=== PATIENT | male | born 1940 | race African-American/Black ===

== ENCOUNTER 2019-06-26 12:53 | Inpatient (IN) ==
[2019-06-26 13:29] LABS: BASO# 0.01 X1000 (0.0-0.2); BASO% 0.1 % (0.0-0.8); EOS# 0.02 X1000 (0.0-0.7); EOS% 0.2 % (0.0-10.0); HEMATOCRIT 30.4 % (42.0-52.0); HEMOGLOBIN 9.2 g/dL (14.0-18.0); IMM GRAN# 0.03 X1000 (0.0-0.04); IMM GRAN% 0.3 % (0.0-0.5); LYMPH# 2.94 X1000 (1.2-3.4); LYMPH% 33.5 % (20.5-51.1); MCH 29.6 PG (27-31); MCHC 30.3 g/dL (33-37); MCV 97.7 FL (81-99); MONO# 1.54 X1000 (0.11-0.59); MONO% 17.6 % (1.7-9.3); MPV 9.7 FL (7.4-10.4); NEUT# 4.23 X1000 (1.4-6.5); NEUT% 48.3 % (42.2-75.2); PLT 170 X1000 (130-400); RBC 3.11 XMIL (4.7-6.1); WBC 8.77 X1000 (4.8-10.8)
[2019-06-26 13:45] LABS: URINE SOURCE CLEAN CATCH
[2019-06-26 13:53] LABS: BILIRUBIN URINE NEGATIVE (NEGATIVE); BLOOD URINE NEGATIVE (NEGATIVE); COLOR YELLOW; GLUCOSE URINE NEGATIVE (NEGATIVE); KETONE URINE NEGATIVE (NEGATIVE); LEUKOCYTES URINE NEGATIVE (NEGATIVE); NITRITE URINE NEGATIVE (NEGATIVE); PH URINE 6.5; PROTEIN URINE NEGATIVE (NEGATIVE); SP GRAVITY URINE 1.011; TURBIDITY URINE CLEAR (CLEAR); UROBILINOGEN URINE NORMAL (NORMAL)
[2019-06-26 13:55] LABS: UR EPITHELIAL CELLS <10 /HPF (<10); URINE BACTERIA NEGATIVE /HPF; URINE RBC <10 /HPF (<10); URINE WBC <10 /HPF (<10)
[2019-06-26 14:04] LABS: UR AMPHETAMINES QUAL NONE DETECTED (NONE DETECT); UR BARBITUATES QUAL NONE DETECTED (NONE DETECT); UR BENZODIAZEPIN QUAL NONE DETECTED (NONE DETECT); UR CANNABINOIDS QUAL NONE DETECTED (NONE DETECT); UR COCAINE QUAL NONE DETECTED (NONE DETECT); UR METHADONE QUAL NONE DETECTED (NONE DETECT); UR METHAMPHETAMINE QUAL NONE DETECTED (NONE DETECT); UR OPIATES QUAL NONE DETECTED (NONE DETECT); UR OXYCODONE QUAL NONE DETECTED (NONE DETECT); UR PCP QUAL NONE DETECTED (NONE DETECT); UR PROPOXYPHENE QUAL NONE DETECTED (NONE DETECT); UR TCA QUAL NONE DETECTED (NONE DETECT)
[2019-06-26 14:16] LABS: ALBUMIN 3.5 g/dL (3.5-5.0); CALCIUM 9.1 mg/dL (8.8-10.2); CREATININE 1.5 mg/dL (0.7-1.2); POTASSIUM 4.4 mmol/L (3.5-5.1); TOTAL BILIRUBIN 0.3 mg/dL (0.20-1.00); TOTAL PROTEIN 7.2 g/dL (6.3-8.3)
[2019-06-26 14:35] LABS: FREE T4 0.87 ng/dL (0.93-1.70)
[2019-06-26 14:39] LABS: TSH 62.92 uIUmL (0.27-4.20)
--- NOTE | 2019-06-26 17:23 | EKG Report ---
Test Performed on : 06/26/2019 5:10:21 PM Test Reason : psych Blood Pressure : / mmHG Vent. Rate : 081 BPM Atrial Rate : 081 BPM P-R Int : 136 ms QRS Dur : 072 ms QT Int : 380 ms P-R-T Axes : 023 037 049 degrees QTc Int : 441 ms Normal sinus rhythm. Normal ECG No previous ECGs available Unconfirmed Result
--- NOTE | 2019-06-26 18:28 | Diag Imaging Result Doc PS360 ---
EXAM: CT HEAD W/O CONTRAST INDICATION: AMS TECHNIQUE: This exam was performed using automated exposure control, adjustment of mA or kV according to patient size, and/or use of iterative reconstruction technique. COMPARISON: None. FINDINGS: Note that there is mild motion artifact on a few slices in the most inferior portion of the right temporal lobe and the right cerebellar hemisphere out of the [id number] due to the patient position. There is moderate diffuse brain atrophy. There is focal encephalomalacia involving the posterior left parietal lobe near the cranial vault and possibly the right parietal lobe. There is no definite acute infarct given the limited sensitivity of CT versus MRI. There is no discrete intracranial mass, mass effect, or intracranial hemorrhage. The surrounding soft tissues and bony structures are essentially unremarkable. IMPRESSION: 1.Somewhat limited study due to motion and positioning as described. 2.Chronic appearing changes as detailed above. No definite acute intracranial pathology. Electronically signed by Mateo Molina 06/26/2019 6:26 PM
--- NOTE | 2019-06-26 18:42 | PROVIDER DOCUMENTATION ---
This chart was entered by Jael Moran Scribe, acting as scribe for Sally Jean PA. HPI-Psychological Disorder - General Stated Complaint: SI Time Seen by Provider: 06/26/19 12:58 Source: patient, EMS ([facility]), other (assisted living staff) Allergies/Adverse Reactions: Patient Allergies Allergy/AdvReac Type Severity Reaction Status Date / Time lithium Allergy Unknown Unknown Unverified 06/26/19 13:25 - History of Present Illness-Psych Nature of Presenting Problem: Pt is a 78 yobm brought into the ED by [facility] from [facility] with c/o of violent aggressive behavior and violent outbursts. Pt says that "there are black people messing with my shower by turning it on and trying to flood my downstairs neighbors. They are trying to evict me". Pt states that he has lived at the facility since October of 2015 and before that lived with his . Pt says he does not know where his is now. Pt states that he sees Dr. Calle and that they say his is bi-polar but that he really is not. [facility] staff state that pt takes bi-polar medication and has turned on his shower and flooded his apartment, acted out at staff, been aggressive and violent toward staff. Pt says he was at [facility] 2 weeks ago and his family, who live in [place], state that if he needs to be admitted they would like him to go back to [facility]. Pt is joking, laughing, alert and nontoxic in appearance. Onset/Duration: reports: gradual, other (EMS was told pt has been acting out for a couple of weeks) Timing: reports: still present Severity: reports: mild Psychiatric Complaints: reports: angry, irritability, paranoid Patient arrived by:: EMS called by spouse/family (assisted living facility) Recently seen or treated by another doctor?: Yes (pt reports he was in [facility] 2 weeks ago) - Suicidal Ideation Suicide Risk Assessment: age >65, bi-polar, frightened friends-family Review of Systems - Adult - REVIEW OF SYSTEMS - ADULT Constitutional: denies: chills, fever Eyes: reports: no symptoms reported Ears, Nose, Mouth & Throat: reports: no symptoms reported Cardiovascular: denies: chest pain, syncope Respiratory: denies: cough, shortness of breath Gastrointestinal: reports: no symptoms reported Genitourinary: reports: no symptoms reported Musculoskeletal: reports: no symptoms reported Integumentary: reports: no symptoms reported Neurological: reports: no symptoms reported Psychiatric: reports: see HPI, other (paranoid) Endocrine: reports: no symptoms reported Hematologic/Lymphatic: reports: no symptoms reported Allergic/Immunologic: reports: no symptoms reported All Other Systems: Reviewed and Negative Past History - Adult - PAST MEDICAL HISTORY-ADULT Review of Records: reports: Old Records Reviewed, Nursing Assessment Review, Medications Reviewed, Social history reviewed & non-contributory. Major Childhood Illnesses: reports: denies history Cardiovascular: reports: denies history Respiratory: reports: denies history Gastrointestinal: reports: denies history Genitourinary: reports: denies history Musculoskeletal: reports: denies history Neurological: reports: denies history Endocrine/Immune: reports: denies history Other Conditions: reports: denies history - IMMUNIZATION STATUS Childhood Immunizations: See Nurse Assessment Flu Vaccine: See Nurse Assessment - FAMILY HISTORY Family History: reviewed, not pertinent - SOCIAL HISTORY Smoking: denies Substance Use: denies Living Situation: care facility ([facility]) Physical Exam-Psych Focus - Physical Exam-Psych Initial Vital Signs Reviewed: Yes Appearance: appropriate appearance, appropriate insight, neat, no apparent distress, impaired recent memory (wearing HH ID arm band but unsure when or where he got it). negative: slow to respond Neurological: alert, normal mood/affect, calm, oriented x 3. negative: anxious, depressed affect, flat Behavior/Eye Contact/Speech: cooperative, good eye contact, normal speech Thoughts/Hallucinations: no apparent hallucination, paranoid (reports that workers at the [facility] where he lives are "sabotaging him" and "framing him" when asked about flooding his room with water from the shower) HENMT: normocephalic/atraumatic, moist mucous membranes Neck: non-tender, full range of motion, supple Respiratory: lungs clear, normal breath sounds Cardiovascular: regular rate, rhythm Back Exam: kyphosis (cervicothoracic) Extremity: normal gait, normal inspection Integumentary: normal color, normal turgor, warm/dry Progress - PLAN OF CARE/RESULTS Progress/Plan/Lab Results: Vital Signs - 8 hr 06/26/19 13:09 Temperature 98.1 F Pulse Rate 87 Respiratory Rate 18 Blood Pressure 157/78 O2 Sat by Pulse Oximetry 98 Laboratory Results - last 24 hr 06/26/19 06/26/19 06/26/19 13:17 13:17 13:17 WBC 8.77 RBC 3.11 L Hgb 9.2 L Hct 30.4 L MCV 97.7 MCH 29.6 MCHC 30.3 L RDW Std Deviation 15.0 H Plt Count 170 MPV 9.7 Immature Gran % (Auto) 0.3 Neut % (Auto) 48.3 Lymph % (Auto) 33.5 Randall % (Auto) 17.6 H Eos % (Auto) 0.2 Baso % (Auto) 0.1 Immature Gran # (Auto) 0.03 Neut # (Auto) 4.23 Lymph # (Auto) 2.94 Randall # (Auto) 1.54 H Eos # (Auto) 0.02 Baso # (Auto) 0.01 Sodium 139 Potassium 4.4 Chloride 101 Carbon Dioxide 24 L Anion Gap 14 BUN 23 H Creatinine 1.5 H Estimated GFR/1.73 m2 46 BUN/Creatinine Ratio 15 Glucose 105 H Calculated Osmolality 282 Calcium 9.1 Total Bilirubin 0.30 AST 18 ALT 7 L Alkaline Phosphatase 42 Total Protein 7.2 Albumin 3.5 Globulin 4.0 Albumin/Globulin Ratio 1.0 Vitamin B12 831 TSH 62.92 H Free T4 0.87 L Urine Source Urine Color Urine Turbidity Urine pH Ur Specific Trinity Urine Protein Ur Glucose (Stick) Ur Ketones (Stick) Urine Blood Urine Nitrite Urine Bilirubin Urobilinogen Dipstick Urine Leukocytes Urine WBC (Auto) Urine RBC (Auto) U Epithel Cells (Auto) Urine Bacteria (Auto) Urine Opiates Screen Ur Oxycodone Screen Urine Methadone Screen U Propoxyphene Qual Ur Barbituates Screen Ur Tricyclics Screen Ur Phencyclidine Scrn Ur Amphetamines Screen U Methamphetamines Scrn U Benzodiazepines Scrn Urine Cocaine Screen U Cannabinoids Screen Plasma/Serum Ethyl Alc 06/26/19 06/26/19 06/26/19 13:17 13:20 13:20 WBC RBC Hgb Hct MCV MCH MCHC RDW Std Deviation Plt Count MPV Immature Gran % (Auto) Neut % (Auto) Lymph % (Auto) Randall % (Auto) Eos % (Auto) Baso % (Auto) Immature Gran # (Auto) Neut # (Auto) Lymph # (Auto) Randall # (Auto) Eos # (Auto) Baso # (Auto) Sodium Potassium Chloride Carbon Dioxide Anion Gap BUN Creatinine Estimated GFR/1.73 m2 BUN/Creatinine Ratio Glucose Calculated Osmolality Calcium Total Bilirubin AST ALT Alkaline Phosphatase Total Protein Albumin Globulin Albumin/Globulin Ratio Vitamin B12 TSH Free T4 Urine Source CLEAN CATCH Urine Color YELLOW Urine Turbidity CLEAR Urine pH 6.5 Ur Specific Trinity 1.011 Urine Protein NEGATIVE Ur Glucose (Stick) NEGATIVE Ur Ketones (Stick) NEGATIVE Urine Blood NEGATIVE Urine Nitrite NEGATIVE Urine Bilirubin NEGATIVE Urobilinogen Dipstick NORMAL Urine Leukocytes NEGATIVE Urine WBC (Auto) <10 Urine RBC (Auto) <10 U Epithel Cells (Auto) <10 Urine Bacteria (Auto) NEGATIVE Urine Opiates Screen NONE DETECTED Ur Oxycodone Screen NONE DETECTED Urine Methadone Screen NONE DETECTED U Propoxyphene Qual NONE DETECTED Ur Barbituates Screen NONE DETECTED Ur Tricyclics Screen NONE DETECTED Ur Phencyclidine Scrn NONE DETECTED Ur Amphetamines Screen NONE DETECTED U Methamphetamines Scrn NONE DETECTED U Benzodiazepines Scrn NONE DETECTED Urine Cocaine Screen NONE DETECTED U Cannabinoids Screen NONE DETECTED Plasma/Serum Ethyl Alc Orders Category Date Time Status CHEST-2 VIEWS [RAD] Stat Exams 06/26/19 17:[address] HEAD W/O CONTRAST [CT] Stat Exams 06/26/19 17:07 Completed ALCOHOL BLOOD Stat Lab 06/26/19 13:17 Completed CBC WITH ELECTRONIC DIFF [HEME] Stat Lab 06/26/19 13:17 Completed COMPREHENSIVE METABOLIC PANEL [CHEM] Stat Lab 06/26/19 13:17 Completed FREE T4 Stat Lab 06/26/19 13:17 Completed TSH Stat Lab 06/26/19 13:17 Completed URINALYSIS W/POSS RFLX CULT [URINALYSIS] Stat Lab 06/26/19 13:20 Completed URINE DRUG SCREEN PL Stat Lab 06/26/19 13:20 Completed VITAMIN B12 Stat Lab 06/26/19 13:17 Completed EKG [EKG] Stat Ther 06/26/19 17:05 Draft at 1435 pt was standing at attention in room "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 Continued to stand with blanket covering shoulders. Listening to Marco flowers on his phone. 1530 pt being screened by [facility]. Pt calm and cooperative. Result Diagrams: 06/26/19 13:17 06/26/19 13:17 - EKG 1 Time of EKG reading by physician:: 17:14 EKG Read and Signed by:: Rafael Mcelroy EKG Interpretation (*Must complete 3 of following elements*): Normal Rate: 81 Rhythm: NSR [place]: normal QRS: normal PA Interval: normal ST Wave: normal - XRAY 1 XRAY Study: Chest Impression: See EMR Report - CT/MRI 1 CT Study: Head Impression: See EMR Report ([facility] - [address], [address], [place] [address] [facility] - [address] , [place] [address] Department of Imaging Patient: LIBERTAD DEL CASTILLO Date: 06/26/19MR#: [id number] : 1940DM Status: REG ERAcct#: [id number] Age/Sex: 78/MRoom/Bed: Loc: P.ED Ordering Physician: Sally Jean Family Physician: None,PCP Reason for Procedure: AMS Signed EXAM: CT HEAD W/O CONTRAST INDICATION: AMS TECHNIQUE: This exam was performed using automated exposure control, adjustment of mA or kV according to patient size, and/or use of iterative reconstruction technique. COMPARISON: None. FINDINGS: Note that there is mild motion artifact on a few slices in the most inferior portion of the right temporal lobe and the right cerebellar hemisphere out of the [id number] due to the patient position. There is moderate diffuse brain atrophy. There is focal encephalomalacia involving the posterior left parietal lobe near the cranial vault and possibly the right parietal lobe. There is no definite acute infarct given the limited sensitivity of CT versus MRI. There is no discrete intracranial mass, mass effect, or intracranial hemorrhage. The surrounding soft tissues and bony structures are essentially unremarkable. IMPRESSION: 1.Somewhat limited study due to motion and po sitioning as described. 2.Chronic appearing changes as detailed above. No definite acute intracranial pathology. Electronically signed by Mateo Molina 06/26/2019 6:26 PM 06/26/191825 Interpreting Physician: Mateo Molina MD Dictated Date/Time: 06/26/191822 cc: Sally Jean; None,PCP) Departure - Departure Date of Disposition Decision: 06/26/19 Time of Disposition Decision: 18:41 DIAGNOSIS: Paranoia Disposition: PSYCHIATRIC HOSPITAL/[facility] [address] Certified Medical Emergency: Emergent Condition: Good Referrals and Follow-Ups: None,PCP [Primary Care Provider] - - Critical Care Note This patient required my direct & personal management of CC.: No Attestation - Physician/ THONY Attestation Patient care was provided by Advanced Practice Provider:: Yes Advanced Practice Provider:: Sally Jean Advanced Practice Provider documentation review:: The Mid-level provider documentation, treatment plan and medical decision making was reviewed by the physician who agrees with all treatment and medical decision making by the MLP. The physician spent face to face time with patient:: No Advanced Practice Provider documentation review:: Supervising physician onsite and consulted in the evaluation and care of this patient. The physician did not have a face to face encounter with the patient. This chart was documented by the indicated scribe, (Jael Moran, Durgaibangelique) and accurately reflects the services I performed and decisions made by me, Sally Jean PA, as attested by the provider's signature.
--- NOTE | 2019-06-26 18:42 | Diag Imaging Result Doc PS360 ---
EXAM: CHEST-2 VIEWS INDICATION: psych TECHNIQUE: 2 views COMPARISON: None. FINDINGS: There is a dense opacity in the right upper lobe near the apex with superior retraction of the right mainstem bronchus. This is suggestive of dense fibrosis with retraction. However, pneumonia cannot be excluded. There is also suggestion of central cavitation. There is no discrete pleural fluid collection or pneumothorax. The cardiomediastinal silhouette and central vasculature are grossly unremarkable. IMPRESSION: Dense right upper lobe opacity near the apex. Please see above discussion. Electronically signed by Mateo Molina 06/26/2019 6:39 PM
--- NOTE | 2019-06-26 20:07 | Diag Imaging Result Doc PS360 ---
EXAM: CT THORAX W/O CONTRAST INDICATION: questionable cxr RUL TECHNIQUE: This exam was performed using automated exposure control, adjustment of mA or kV according to patient size, and/or use of iterative reconstruction technique. COMPARISON: None. FINDINGS: There is severe bronchiectasis at the right lung apex corresponding to the density seen on the recent chest radiograph. There is much milder bronchiectasis at the left lung apex as well. There is thickening of the mucosa of the dilated bronchi with surrounding infiltrate. In addition to this, there is patchy nodular tree-in-bud opacities in the right middle lobe, right lower lobe, and the lingula indicating bronchiolitis, likely related to an atypical infection such as IRENE or tuberculosis. There is pleural thickening at the right lung apex adjacent to the severe bronchiectasis. There is no pleural fluid collection and no pneumothorax. There is no cardiomegaly. There are a few shotty nonspecific mediastinal lymph nodes on the right that are probably reactive. Limited views of the upper abdomen are essentially unremarkable. IMPRESSION: Severe bronchiectasis at the right lung apex and milder bronchiectasis at the left lung apex with thickened bronchial mucosa and surrounding infiltrate as well as multiple other nodular and tree-in-bud opacities throughout the right lung and in the lingula on the left. Consider an atypical infectious process such as IRENE or tuberculosis. Electronically signed by Mateo Molina 06/26/2019 8:05 PM
[2019-06-26] MEDS ORDERED: TYLENOL PO PRN (22:00)
[2019-06-26] MEDS ORDERED: XYLOCAINE-MPF 1% INJ ONE (22:27)
[2019-06-26] MEDS ORDERED: ROCEPHIN IM ONE (22:27)
[2019-06-27] MEDS ORDERED: ZITHROMAX PO ONE (14:16)
[2019-06-27] MEDS ORDERED: ABILIFY PO ONE ×2 (14:21→16:15)
[2019-06-27] MEDS ORDERED: SYNTHROID PO ONE (14:22)
[2019-06-27] MEDS ORDERED: STERILE WATER INJ. INJ PRN (14:24)
[2019-06-27] MEDS ORDERED: GEODON IM PRN (14:24)
[2019-06-27] MEDS ORDERED: DUONEB (A & A) INH PRN (14:25)
--- NOTE | 2019-06-27 15:01 | HISTORY AND PHYSICAL ---
HISTORY OF PRESENT ILLNESS: This is a 78-year-old male. He came in for combative behaviors essentially. He is 78. No major medical problems except for hypertension. He has never been here before. I think he gets most of his care from [place]. He lives at [facility]. Apparently, he felt like he was being wrongfully accused of flooding downstairs apartment and he is still very belligerent and angry. Apparently, that is a big change from baseline. Violent, aggressive behaviors, violent outbursts. There are "black people messing with his shower and trying to flood the downstairs neighbors, they were trying to evict him". He has a psychiatric history which I believe is bipolar. He is allergic to lithium so I think he is. He sees Dr. Calle. He is supposed to be getting a medication which apparently he missed his dose. He was at [facility] 2 weeks ago for fever but that was negative. Now, he is very agitated and wants to go home. He does not understand why he has to be kept here. Now, he reports no cough, no shortness of breath, no weight loss. Again, he had some "issues before". His TB exposure is remote. He was in the in 1968. He was in the [place] but no exposure since then. He had a PPD last year sometime around September which is negative. Again, those can be false negatives in the elderly, but no hemoptysis, no weight loss, no cough, no night sweats, no lymphadenopathy. There are not a lot of risk factors for TB or MAC. He does not have any chronic lung disease. He reports that he does not smoke but his CT scan to me looks like he has got some bullous changes and he has bronchiectasis but does not clearly have COPD or a history of that. Reportedly, no COPD history. He was admitted for bronchiectasis, rule out tuberculosis. He also has active psychiatric issues but in any case, past medical history of hypertension. In any case, he came in for evaluation. He has non-Hodgkin's lymphoma. He had a history of that. That was in 2007. Treatment was in [place]. He had chemotherapy and radiation therapy. As far as we know, it has been cleared. Also gout, also dyslipidemia. PAST SURGICAL HISTORY: He has had bilateral hip replacements. SOCIAL HISTORY: No tobacco or ethanol. He is retired. He is ex-. He lived with his before he was at [facility]. No ethanol, no tobacco, no drugs. ALLERGIES: Blaine. Urine drug screen was negative. Rest of his labs really are unremarkable except he had a mild renal insufficiency. MEDICATIONS: He is currently on Lipitor 10, Abilify 300 I believe monthly which he missed his dose, Depakote 500 b.i.d. REVIEW OF SYSTEMS: Otherwise negative x10 point review of systems, especially no hemoptysis, cough, shortness of breath, any obvious clinical issues there. PHYSICAL EXAMINATION: VITAL SIGNS: Blood pressure is 154/65, heart rate of 71, respiratory rate of 18, temperature was 97.9 degrees. GENERAL: Well-developed male in mild distress. He is a little ornery, kind of upset, but I think some of that is because he is uncertain as to why he is here. There may be some underlying psychiatric issues too, especially if he missed his regular dose of medications which I am not entirely sure why that has happened. EYE EXAMINATION: Pupils equal, round, reactive to light. He does have arcus senilis. NECK: Kind of hyperflexion. He cannot really raise his neck and I think that is kind of a chronic issue for him. ENT: Moist mucous membranes. No lesions noted. CARDIOVASCULAR: Regular rate and rhythm. PULMONARY: Bilateral breath sounds clear to auscultation. I cannot really appreciate rales, rhonchi, or wheezing. GI: Soft, nontender, nondistended. Bowel sounds are positive. LABORATORY DATA: White count 8, hemoglobin and hematocrit 9 and 30, platelets 170,000. Creatinine 1.5, glucose 105. Rest of the testing is negative. CT was read as bronchiectasis with severe in the right lung apex and the left lung apex, and multiple nodular tree-in-bud opacities with concern over atypical infectious process such as IRENE or tuberculosis. ASSESSMENT: 1. This is a 78-year-old male presenting from an assisted living with bronchiectasis and possible tubercular changes, although more consistent with Mycobacterium avium-intracellulare, MAC or IRENE, although he does not have clear risk factors for that besides being elderly so we will rule out AFB x3. QuantiFERON has been ordered. I think it is unlikely this is tuberculosis. He does not really have risk factors or any really symptoms. 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 I have discussed the case with Dr. Obrien because a pulmonary consult is not available here so we will continue to follow. 2. Hypothyroidism. He has hypothyroidism as part of his psychiatric workup so we will start treating that with Synthroid. The patient is refusing anything intravenously which at this point, it is not essential to his care so we will continue to follow. 3. Bipolar disorder, which is not controlled. He will need psychiatric evaluation but we have to rule out the tuberculosis issue obviously first, which hopefully we can do with collective sputums. If those are negative, then I anticipate discharge soon. 4. Discharge condition is stable, well pending resolution of his other issues. cc: Frankie Panda MD
[2019-06-27] MEDS: DEPAKOTE PO SCH ×2 (15:05→20:28)
[2019-06-27 15:49] LABS: ALBUMIN 3.3 g/dL (3.5-5.0); CALCIUM 8.8 mg/dL (8.8-10.2); CREATININE 1.4 mg/dL (0.7-1.2); POTASSIUM 4.6 mmol/L (3.5-5.1); TOTAL BILIRUBIN 0.2 mg/dL (0.20-1.00); TOTAL PROTEIN 6.8 g/dL (6.3-8.3)
[2019-06-27] MEDS: LIPITOR PO SCH (20:28)
[2019-06-27] MEDS: VENTOLIN HFA INH PRN (20:32)
[2019-06-28] MEDS: SYNTHROID PO SCH (06:05)
[2019-06-28 06:07] LABS: BASO# 0.01 X1000 (0.0-0.2); BASO% 0.2 % (0.0-0.8); EOS# 0.04 X1000 (0.0-0.7); EOS% 0.6 % (0.0-10.0); HEMATOCRIT 27.9 % (42.0-52.0); HEMOGLOBIN 8.4 g/dL (14.0-18.0); IMM GRAN# 0.01 X1000 (0.0-0.04); IMM GRAN% 0.2 % (0.0-0.5); LYMPH# 2.48 X1000 (1.2-3.4); LYMPH% 39.7 % (20.5-51.1); MCH 29.7 PG (27-31); MCHC 30.1 g/dL (33-37); MCV 98.6 FL (81-99); MONO# 1.13 X1000 (0.11-0.59); MONO% 18.1 % (1.7-9.3); MPV 9.7 FL (7.4-10.4); NEUT# 2.57 X1000 (1.4-6.5); NEUT% 41.2 % (42.2-75.2); PLT 143 X1000 (130-400); RBC 2.83 XMIL (4.7-6.1); RDW 14.9 % (11.5-14.5); WBC 6.24 X1000 (4.8-10.8)
[2019-06-28] MEDS: VENTOLIN HFA INH PRN (08:12)
[2019-06-28] MEDS: ABILIFY PO SCH (09:03)
[2019-06-28] MEDS: DEPAKOTE PO SCH ×2 (09:03→20:01)
[2019-06-28] MEDS: ZITHROMAX PO SCH (09:03)
[2019-06-28] MEDS ORDERED: DUONEB (A & A) ONE (11:04)
[2019-06-28] MEDS ORDERED: MUCOMYST 20% INH ONE (11:04)
--- NOTE | 2019-06-28 12:21 | PROGRESS NOTE ---
DATE: 06/28/2019 SUBJECTIVE: Patient has no major complaints. OBJECTIVE: Vital signs: Blood pressure is 173/73, heart rate of 88, respiratory 18, temperature 98.6 degrees. General: He has no complaints. Again, he is not complaining of shortness of breath or cough or anything except being in the hospital. Cardiovascular: Regular rate and rhythm. Pulmonary: Bilateral breath sounds clear to auscultation. GI: Soft, nontender, nondistended. Bowel sounds are positive. LABORATORY DATA: White count 6, hemoglobin and hematocrit 8 and 27, platelets of 143,000. He does have hypothyroidism. PROBLEM LIST: 1. Bronchiectasis with concern over IRENE. We are still waiting on his QuantiFERON or sputum to be negative, and I think we can probably take him off precautions and pursue psychiatric evaluation. 2. Hypothyroidism, we will continue Synthroid. 3. Bipolar disorder, which does not appear to be completely controlled, although today I am going to say he is much improved, so we are going to monitor him. I think once we can get the QuantiFERON or the sputum, then anticipate discharge back to the facility. He will need close follow up with Pulmonary. I have discussed the case with Dr. Obrien, so we will see how things are going. cc: Frankie Panda MD
--- NOTE | 2019-06-28 15:05 | PROGRESS NOTE ---
DATE: 06/28/2019 SUBJECTIVE: Patient has no major complaints. OBJECTIVE: 173/73, heart rate of 88, respiratory rate 18, temperature 98.6 degrees, 98% on room air. Cardiovascular: Regular rate and rhythm. Pulmonary: Bilateral breath sounds. Clear to auscultation. GI: Soft, nontender, and nondistended. Bowel sounds are positive. LABORATORY: White count 6, hemoglobin and hematocrit 8 and 27, and platelets 143,000. PROBLEM LIST: 1. 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 I think it is unlikely, but I am still waiting on the QuantiFERON test before we can progress to any other treatment. We have not gotten a sputum until today. We had to induce it, but he is doing pretty well from that standpoint. He is not really symptomatic. 2. Hypothyroidism. Continue Synthroid. 3. Bipolar. He will need a psychiatric evaluation once we have taken him off precautions. On physical exam, BP cc: Frankie Panda MD
[2019-06-28] MEDS: DUONEB (A & A) INH SCH (19:33)
[2019-06-28] MEDS: MUCOMYST 20% INH SCH (19:34)
[2019-06-28] MEDS: LIPITOR PO SCH (20:01)
[2019-06-29] MEDS: DUONEB (A & A) INH SCH (02:31)
[2019-06-29 05:12] LABS: BASO# 0.01 X1000 (0.0-0.2); BASO% 0.2 % (0.0-0.8); EOS% 1.6 % (0.0-10.0); HEMATOCRIT 29.7 % (42.0-52.0); HEMOGLOBIN 8.9 g/dL (14.0-18.0); IMM GRAN# 0.01 X1000 (0.0-0.04); IMM GRAN% 0.2 % (0.0-0.5); LYMPH# 2.41 X1000 (1.2-3.4); LYMPH% 39.5 % (20.5-51.1); MCH 29.5 PG (27-31); MCV 98.3 FL (81-99); MONO# 1.19 X1000 (0.11-0.59); MONO% 19.5 % (1.7-9.3); MPV 9.5 FL (7.4-10.4); NEUT# 2.38 X1000 (1.4-6.5); PLT 152 X1000 (130-400); RBC 3.02 XMIL (4.7-6.1); RDW 14.9 % (11.5-14.5)
[2019-06-29 05:15] LABS: AGAP 13; BUN 18 mg/dL (8-22); CHLORIDE 102 mmol/L (98-107); COSMO 283; CREATININE 1.1 mg/dL (0.7-1.2); ESTIMATED GFR > 60; GLUCOSE 100 mg/dL (70-104); POTASSIUM 4.5 mmol/L (3.5-5.1); SODIUM 141 mmol/L (136-145); TCO2 26 mmol/L (25-35)
[2019-06-29 05:30] LABS: IRON SATURATION 28 %; TIBC 181 ug/dL; TOTAL IRON 51 ug/dL (53-167); UNBOUND IRON 130 ug/dL (112-346)
[2019-06-29] MEDS: SYNTHROID PO SCH (06:22)
[2019-06-29] MEDS: MUCOMYST 20% INH SCH (08:00)
[2019-06-29] MEDS: ABILIFY PO SCH (10:26)
[2019-06-29] MEDS: DEPAKOTE PO SCH ×2 (10:26→20:06)
[2019-06-29] MEDS: ZITHROMAX PO SCH ×2 (10:27→15:00)
[2019-06-29 14:04] LABS: FERRITIN 888 ng/mL (30-400)
[2019-06-29] MEDS ORDERED: EMSAM TD SCH (14:30)
[2019-06-29] MEDS ORDERED: ABILIFY MAINTENA IM ONE (15:00)
[2019-06-29] MEDS: FOLIC ACID PO SCH (15:16)
--- NOTE | 2019-06-29 15:50 | PROGRESS NOTE ---
DATE: 06/29/2019 SUBJECTIVE: The patient has no complaints. He does not believe he is sick. He does not have any tuberculosis. We are incorrect about our diagnosis, although I think after further discussion with his daughter, he agreed to treatment. In any case, no other complaints. Again no fevers, cough, anything. OBJECTIVE: Blood pressure 147/65, heart rate 68, respiratory rate 20, temperature 98.3 degrees. He is afebrile.Cardiovascular: Regular rate and rhythm. Pulmonary: Bilateral breath sounds clear to auscultation. GI: Soft, nontender, nondistended. Bowel sounds are positive. LABORATORY DATA: White count 6, hemoglobin and hematocrit 8 and 29, platelets 152,000. Basic was okay. Ferritin high at 888 but the rest of his iron studies were pretty good. Total iron was a little low but his saturation was only 28%. His folate is low. In any case. 1. His QuantiFERON is positive. We have not been able to successfully get a good enough sputum. I have discussed the case with Dr. Rayo who recommends he is suspicious that it is tuberculosis and maybe not Mycobacterium avium complex. He agrees to do a bronchoscopy so we are going to transfer him to the main hospital for that to be done in the next 24 hours or so. We will still try to get AFBs. He has agreed to go through the procedure. He is agreeing to take treatment for that. He is not agreeing to take any psychiatric treatment. He is just refusing it out right. He has missed his depot form of Abilify for last 2 months. He did take 1 dose of Abilify but he has not taken anything else and he refuses to take Depakote so we will get psychiatric evaluation at some point once he is off contact precautions. 2. Hypothyroidism. Continue Synthroid. 3. Bipolar. He will need to have this addressed once we stabilize. Again he is refusing all psychiatric treatment so we may have to have inpatient consult liaison psych evaluation. cc: Frankie Panda MD
[2019-06-29] MEDS ORDERED: GEODON IM PRN (17:09)
[2019-06-29] MEDS ORDERED: STERILE WATER INJ. INJ PRN (17:10)
[2019-06-29] MEDS ORDERED: TYLENOL PO PRN (17:12)
[2019-06-29] MEDS ORDERED: VENTOLIN HFA INH PRN (17:12)
[2019-06-29] MEDS: LIPITOR PO SCH ×2 (19:53→20:06)
[2019-06-30 06:11] LABS: BASO# 0.01 X1000 (0.0-0.2); BASO% 0.1 % (0.0-0.8); EOS% 1.2 % (0.0-10.0); HEMATOCRIT 31.7 % (42.0-52.0); HEMOGLOBIN 9.6 g/dL (14.0-18.0); IMM GRAN# 0.02 X1000 (0.0-0.04); IMM GRAN% 0.2 % (0.0-0.5); LYMPH# 3.43 X1000 (1.2-3.4); LYMPH% 42.6 % (20.5-51.1); MCH 29.2 PG (27-31); MCHC 30.3 g/dL (33-37); MCV 96.4 FL (81-99); MONO# 1.25 X1000 (0.11-0.59); MONO% 15.5 % (1.7-9.3); MPV 9.7 FL (7.4-10.4); NEUT# 3.24 X1000 (1.4-6.5); NEUT% 40.4 % (42.2-75.2); PLT 165 X1000 (130-400); RBC 3.29 XMIL (4.7-6.1); RDW 15.1 % (11.5-14.5); WBC 8.05 X1000 (4.8-10.8)
[2019-06-30] MEDS: SYNTHROID PO SCH (07:29)
[2019-06-30] MEDS: ABILIFY PO SCH (14:33)
[2019-06-30] MEDS: DEPAKOTE PO SCH ×2 (14:33→22:53)
[2019-06-30] MEDS: FOLIC ACID PO SCH (14:34)
--- NOTE | 2019-06-30 15:59 | PROGRESS NOTE ---
DATE: 06/30/2019 SUBJECTIVE: Patient has no complaints. OBJECTIVE: Blood pressure 148/59, heart rate 68, respiratory rate 18, temperature 98 degrees.Cardiovascular: Regular rate and rhythm. Pulmonary: Bilateral breath sounds clear to auscultation. GI: Soft, nontender, nondistended. Bowel sounds are positive. LABORATORY DATA: White count 8, hemoglobin and hematocrit 9 and 31, platelets 165,000. Basic was normal. PROBLEM LIST: 1. Rule out tuberculosis versus mycobacterium avium intracellulare infection and bronchiectasis. I have not started antitubercular medications. Will see what Dr. Rayo says. I did not place the consult until today, but anticipate we will do bronchoscopy tomorrow and then proceed with treatment subsequently. 2. Hypothyroidism. He will continue Synthroid. 3. Bipolar is not controlled. He is refusing all treatment. We will get a psych consult once we have ruled out active TB. cc: Frankie Panda MD
[2019-06-30] MEDS: LIPITOR PO SCH (22:54)
--- NOTE | 2019-07-01 00:19 | PULMONOLOGY CONSULTATION ---
DATE: 06/30/2019 HISTORY OF PRESENT ILLNESS: Mr. Aranda is a 78-year-old male without prior admission to this hospital, who was brought to the emergency room 06/26/2019 from his assisted living facility due to violent and aggressive behavior with paranoia. He reportedly sees a psychiatrist for bipolar disorder. The patient was in [facility] about 2 weeks ago by report with the diagnosis of fever. He reports he was "cleared from there." He was evaluated by [facility] and a chest x-ray was performed which revealed an abnormality in the right apex. CT scan of the thorax was performed which revealed severe right upper lobe/right apical bronchiectasis with milder bronchiectasis in the left upper lobe with multiple nodular tree-in-bud opacities. The patient is a difficult historian, but reports he has not been exposed to tuberculosis. He does report living in the [facility], and [place] and then [place], [place]. With the abnormal findings on CT scan, the patient underwent a QuantiFERON Gold TB test, which is positive. One sputum sample was collected on 06/28/2019, but was inadequate. PAST MEDICAL HISTORY: 1. Remote history of non-Hodgkin's lymphoma. 2. Hypertension. 3. Presumptive bipolar disorder. He clearly has a component of paranoia. 4. Dyslipidemia. 5. Gout. 6. Status post bilateral hip replacements. SOCIAL HISTORY: No tobacco or alcohol listed. He previously was in the . Currently lives at [place]. REVIEW OF SYSTEMS: Noncontributory. The patient reports he feels well, does not believe he should be in the hospital. PHYSICAL EXAMINATION: General: Reveals a thin black male resting comfortably in no distress. Vital Signs: Blood pressure 158/73, heart rate 84, respiratory rate 18, oxygen saturation 100% on room air. HEENT: Pupils are equal and reactive. Oropharynx appears clear. Neck: Supple. Chest: Reveals occasional rhonchi bilaterally. Cardiac: S1, S2. Abdomen: Soft. Extremities: Without edema. LABORATORIES: CT scan as per HPI. Sodium 142, potassium 4.6, chloride 104, bicarbonate 26, BUN 21, creatinine 1.4. TSH is 62, free T4 is 0.87, albumin 3.3. IMPRESSION: A 78-year-old with cavitary lung disease, mild malnutrition, elevated QuantiFERON Gold TB test without definite treatment for tuberculosis. Radiographically and serology are consistent with tuberculosis. Alternative diagnosis would be an atypical mycobacterium. At this juncture, I believe it is prudent to confirm the diagnosis because he may be noncompliant with treatment regimen. Unfortunately, patient denies being sick. He refused to look at his CT scan when I attempted to show him the cavities within his lungs. He reports that he was cleared at [facility] and would only be treated at that facility. I recommended that we proceed with a bronchoscopy so that cultures could be obtained. He called me a "white supremacist" and indicated he would not have the procedure. The patient may require a legal proceeding to require him to have the procedure. He currently is a danger to others if he were to go back to any facility due to the possibility of active tuberculosis which has not been treated. RECOMMENDATIONS: 1. Encourage patient to proceed with bronchoscopy which he is currently declining. 2. Attempt to collect additional sputum cultures. If 3 adequate samples could be obtained, then a bronchoscopy could be avoided. 3. Consider a legal proceeding to mandate this procedure. It is not clear to this practitioner. He may require a court-appointed guardian. cc: Kali Rayo MD
[2019-07-01] MEDS: SYNTHROID PO SCH (06:04)
[2019-07-01] MEDS ORDERED: EPINEPHRINE ONE (09:25)
[2019-07-01] MEDS ORDERED: XYLOCAINE 2% ONE (09:25)
[2019-07-01] MEDS ORDERED: XYLOCAINE 2% VISCOUS ONE (09:25)
[2019-07-01] MEDS ORDERED: SODIUM CHLORIDE 0.9% 20 ML ONE (09:26)
[2019-07-01] MEDS ORDERED: DIPRIVAN 1% ONE ×2 (10:08→10:30)
[2019-07-01] MEDS ORDERED: XYLOCAINE-MPF 2% ONE (10:16)
[2019-07-01] MEDS: FOLIC ACID PO SCH (11:59)
[2019-07-01] MEDS: ABILIFY PO SCH (11:59)
[2019-07-01] MEDS: DEPAKOTE PO SCH ×2 (11:59→21:32)
--- NOTE | 2019-07-01 16:00 | PROGRESS NOTE ---
DATE: 07/01/2019 SUBJECTIVE: The patient has no major complaints. OBJECTIVE: Vital Signs: Blood pressure is 153/68, heart rate 68, respiratory rate 18, temperature 98.8 degrees, 98% on room air. Cardiovascular: Regular rate and rhythm. Pulmonary: Bilateral breath sounds clear to auscultation. Gastrointestinal: Soft, nontender, nondistended. Bowel sounds are positive. LABORATORY DATA: White count is 8, hemoglobin and hematocrit 9 and 31, platelets 165,000. PROBLEM LIST: 1. Bronchiectasis with a concern over possible tuberculosis versus mycobacterium avium- intracellulare. He is not on treatment yet. We are going to go ahead and start isoniazid. He is not particularly symptomatic. He just has an abnormal CT scan essentially that was found screening him to go to inpatient psych, which is a major issue that still has not been dealt with and patient refuses to take any of his medications because he does not feel he has anything wrong with him, but he was sent from his assisted living because of encephalopathy. Well not so much that, just behavioral issues, and he is in denial that he has bipolar disorder, even though I think it has been a long-standing disorder and he sees Dr. Calle. In any case, we are waiting for the AFB. If that is negative, then he could be cleared and then he could progress with psychiatric evaluation, which he has already been seen by them and was accepted initially pending the workup for his pneumonia. 2. Hypothyroidism. We will continue Synthroid. 3. Bipolar. I am not really sure exactly what we are going to do. I am going to try to see if we can get an inpatient psychiatric evaluation to just maybe start some therapy, but I am not sure what else we are going to do and we may end up having to do some sort of court committal because we can. There is really no disposition until the psychiatric issue is resolved. Interestingly enough, his [facility] records do not show anything. He was brought in " for fever" but his family really brought him in because they wanted to get a psychiatric evaluation, because he has missed his intramuscular Abilify, a long-term 30 day treatment now for two months, he refused it here. We tried to give it here. He is refusing Abilify and he is refusing his Depakote and he has lost intravenous access. So, a very complicated situation, but he would he may end up becoming a court hold if they will take him pending the TB status, I guess. So we will see how things go. cc: Frankie Panda MD
--- NOTE | 2019-07-01 18:16 | OPERATIVE NOTE ---
PROCEDURE DATE: 07/01/2019 PROCEDURE PERFORMED: Bronchoscopy with bronchoalveolar lavage of the right upper lobe and the left upper lobe with a tracheal washing. CLINICAL INDICATIONS: A 78-year-old with biapical cavitary disease with tree-in-bud spreading along with a positive QuantiFERON gold serology test. PLAN: After informed consent was obtained, patient was brought to the endoscopy suite. The patient did not tolerate having sticks placed in his nose prior to the procedure without sedation. Sedation was initiated but was unsuccessful. The IV was not in good position. The patient did scream out multiple times while the DYNAMITER placed a new IV in the left hand. After the new catheter was placed, he easily became sedated with propofol. Procedure proceeded with bronchoscope be advanced through the right nostril to the level of the vocal cords. The bronchoscope was advanced into the trachea. There was mild increase in purulent secretions in the proximal trachea and bronchial tree. This was suctioned for a bronchial wash. Airway to the right upper lobe, right middle lobe, right lower lobe, left upper lobe lingula and left lower lobe were patent without lesions. The bronchoscope was directed to the right upper lobe. A bronchoalveolar lavage was performed with three 60 mL aliquots of normal saline. There was good return of cloudy slightly purulent serosanguineous fluid. Bronchoscope was directed to the left upper lobe. Bronchoalveolar lavage was performed from the apical posterior segment. Bloody fluid was identified. The patient tolerated procedure without difficulty. cc: aKli Rayo MD
[2019-07-01] MEDS: INH PO SCH (18:41)
[2019-07-01] MEDS: LIPITOR PO SCH (21:32)
[2019-07-02] MEDS: SYNTHROID PO SCH (06:59)
[2019-07-02] MEDS: DEPAKOTE PO SCH ×2 (08:36→22:16)
[2019-07-02] MEDS: FOLIC ACID PO SCH (08:36)
[2019-07-02] MEDS: ABILIFY PO SCH (08:36)
[2019-07-02] MEDS: INH PO SCH (08:36)
--- NOTE | 2019-07-02 18:42 | PULMONOLOGY PROGRESS NOTE ---
DATE: 07/02/2019 SUBJECTIVE: The patient is awake, alert, and cooperative. He is currently listening to Marco Chicas. OBJECTIVE: Maximum temperature in the last 24 hours is 101.6 degrees, current temperature 100.6.HEENT: Pupils are equal and reactive. Oropharynx appears clear. Neck: Supple. Chest: Reveals rhonchi bilaterally. Cardiac: S1, S2. Abdomen: Soft. Extremities: Without edema. LABORATORIES: Routine cultures from bronchoscopy revealed normal yessica. AFB cultures reveal rare AFB identified in the trachea, 2+ AFB identified from bronchoalveolar lavage of the right upper lobe, and 4+ AFB identified from bronchoalveolar lavage of the left upper lobe. IMPRESSION: A 78-year-old with 1. Positive QuantiFERON gold tuberculosis test. 2. Bronchiectasis with severe cavitary lung disease, right greater than left upper lobes. 3. 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 DISCUSSION: A 78-year-old with problems outlined above. This most likely represents tuberculosis given the clinical serological radiographic picture. He has been initiated on INH for the positive QuantiFERON test. Given the high probability of tuberculosis, I will initiate him on the RIPE therapy which includes Rifampin, INH, pyrazinamide, and ethambutol. I have discussed the case with Frankie Orellana from the [facility] Department. He is with the TB section. His phone number is [phone]. The initial history was discussed with Mr. Orellana and he is aware that he is in [facility]. He provided the medication dosing sheet for the RIPE therapy. The patient should be initiated on isoniazid 300 mg per day, rifampin 600 mg per day, pyrazinamide 2 g per day, and ethambutol 1.6 g per day. If this is tuberculosis, he will likely need a long course given the extensive cavitary disease. cc: Kali Rayo MD
--- NOTE | 2019-07-02 22:13 | PROGRESS NOTE ---
DATE: 07/02/2019 SUBJECTIVE: Patient notes that he is feeling fine. States he has not actually had fever, although he has been checked twice overnight with a fever. OBJECTIVE: Vital Signs: T-max 101.9 degrees, pulse 116, respiratory 18, BP 118/83. General: Patient is awake. He is lying in bed. He is in no current respiratory distress. Cardiovascular: Tachycardia. Chest: Decreased but equal, nonlabored. Abdomen: Soft, nondistended. Extremities: Moves all extremities. ASSESSMENT: 1. Febrile illness. 2. Hypertension. 3. Hypothyroidism. 4. Bipolar. 5. Bronchiectasis. PLAN: We are going to continue isoniazid. The patient did have bronchoscopy yesterday. We will consider antibiotic. We will discuss with Pulmonology. The patient's bipolar, unfortunately, is creating some difficulties in his care. Further orders as needed. cc: David Cano MD
[2019-07-02] MEDS: LIPITOR PO SCH (22:16)
[2019-07-03] MEDS: SYNTHROID PO SCH (06:52)
[2019-07-03] MEDS: FOLIC ACID PO SCH (11:03)
[2019-07-03] MEDS: MYAMBUTOL PO SCH (11:03)
[2019-07-03] MEDS: INH PO SCH (11:04)
[2019-07-03] MEDS: PYRIDOXINE PO SCH (11:04)
[2019-07-03] MEDS: RIFAMPIN PO SCH (11:04)
[2019-07-03] MEDS: PYRAZINAMIDE PO SCH (11:04)
[2019-07-03] MEDS: DEPAKOTE PO SCH (11:12)
[2019-07-03] MEDS: ABILIFY PO SCH (11:12)
--- NOTE | 2019-07-03 18:57 | PROGRESS NOTE ---
DATE: 07/03/2019 SUBJECTIVE: Patient has no complaints. OBJECTIVE: Vital Signs: T-max 101.6 degrees, T-current 100.2, pulse 105, BP 142/70, saturation 100% on room air. General: Patient is awake, pleasant, in no distress. HEENT: Normocephalic. Neck: Supple. Cardiovascular: Regular rate. Chest: Clear. Abdomen: Soft. Extremities: Moves all extremities. ASSESSMENT: 1. Bronchiectasis with cavitary lesion, likely secondary to tuberculosis. He is currently being treated by protocol per Dr. Rayo. 2. Hypothyroidism. 3. Bipolar. 4. Febrile illness. PLAN: We will continue to follow and treat as needed. cc: David Cano MD
--- NOTE | 2019-07-03 19:09 | PULMONOLOGY PROGRESS NOTE ---
DATE: 07/03/2019 SUBJECTIVE: The patient is awake, alert, and conversant. He is watching TV and listening to the radio. He is without complaints except for his food which he does not like the way it was prepared. He is watching TV and believes everyone should be treated the same (I agreed). OBJECTIVE: Vital Signs: Maximum temperature in the last 24 hours is 101.6 degrees. BP 122/71, heart rate 83, respiratory rate 16, oxygen saturation 99%. HEENT: Pupils are equal and reactive. Oropharynx appears clear. Neck: Supple. Chest: Crackles bilaterally with occasional rhonchi in the more superior lung salazar. Cardiac: S1, S2. Abdomen: Soft. Extremities: Without edema. LABORATORIES: No new microbiology data. Cytology from his bronchoscopy revealed reactive changes, but no malignancy. IMPRESSION: A 78-year-old with: 1. Positive QuantiFERON gold tuberculosis test. 2. Bronchiectasis with severe cavitary lung disease, right greater than left upper lobe. 3. Multiple washings/lavages demonstrating acid-fast bacillus in the trachea, right upper lobe, and left upper lobe. PLAN: 1. Continue 4 drug tuberculosis regimen as outlined by the State. 2. Additional recommendations pending confirmation of tuberculosis. If patient has tuberculosis, he may be a difficult patient to place given his underlying psychiatric disease. cc: Kali Rayo MD
[2019-07-04] MEDS: LIPITOR PO SCH (00:29)
[2019-07-04] MEDS: DEPAKOTE PO SCH ×2 (00:29→10:56)
[2019-07-04] MEDS: SYNTHROID PO SCH (06:36)
[2019-07-04] MEDS: ABILIFY PO SCH (10:56)
[2019-07-04] MEDS: PYRIDOXINE PO SCH (10:56)
[2019-07-04] MEDS: PYRAZINAMIDE PO SCH (10:59)
[2019-07-04] MEDS: MYAMBUTOL PO SCH (10:59)
[2019-07-04] MEDS: FOLIC ACID PO SCH (10:59)
[2019-07-04] MEDS: RIFAMPIN PO SCH (11:00)
--- NOTE | 2019-07-04 19:48 | PULMONOLOGY PROGRESS NOTE ---
DATE: 07/04/2019 SUBJECTIVE: The patient is giving me a scowling look. He will not answer questions today. OBJECTIVE: Vital Signs: Maximum temperature in the last 24 hours is 100.8 degrees yesterday morning. Current temperature 98.4 degrees. HEENT: Pupils are equal and reactive. Oropharynx appears clear. Neck: Supple. Chest: Rhonchi bilaterally. Cardiac: S1, S2. Abdomen: Soft. Extremities: Without edema. IMPRESSION: A 78-year-old with: 1. QuantiFERON Gold tuberculosis test. 2. Upper lobe cavitary disease which is extensive, right greater than left. 3. Multiple washings revealing acid-fast bacillus. PLAN: 1. Continue 4 drug regimen for suspected tuberculosis. 2. Await confirmation from the State. 3. Await additional recommendations from the State if he is positive for tuberculosis. cc: Kali Rayo MD
--- NOTE | 2019-07-05 00:28 | PROGRESS NOTE ---
DATE: 07/04/2019 SUBJECTIVE: The patient is not having any major complaints but is refusing treatment. OBJECTIVE: Vital signs: Blood pressure 160/74, heart rate of 81, respiratory 16, temperature 98.9 degrees. Cardiovascular: Regular rate and rhythm. Pulmonary: Bilateral breath sounds clear to auscultation. Gastrointestinal: Soft, nontender, nondistended. Bowel sounds are positive. LABORATORY DATA: No new data today. PROBLEM LIST: 1. Bronchiectasis, cavitary lesion, felt to be secondary to mycobacterium tuberculosis. QuantiFERON positive AFB smear positive. The patient is currently refusing treatment, RIPE treatment. We will have to work aggressively to get him to commit to treatment; otherwise, he may require commitment. 2. Hypothyroidism. We will continue Synthroid and follow. 3. Bipolar disorder. We will get a psychiatric evaluation and follow. 4. Disposition. Difficult situation because patient is not accepting of his diagnosis nor is he acceptant of any treatment either for his tuberculosis or for his bipolar disorder. This may require medical legal commitment due to the concern over the potential risk of infection of other people, but he is not seemingly concerned, unfortunately. cc: Frankie Panda MD
[2019-07-05] MEDS: LIPITOR PO SCH ×2 (00:58→23:56)
[2019-07-05] MEDS: INH PO SCH ×2 (00:58→11:33)
[2019-07-05] MEDS: DEPAKOTE PO SCH ×4 (05:04→23:56)
[2019-07-05] MEDS: SYNTHROID PO SCH (06:47)
[2019-07-05] MEDS: ABILIFY PO SCH ×2 (11:18→15:32)
[2019-07-05] MEDS: FOLIC ACID PO SCH (11:18)
[2019-07-05] MEDS: MYAMBUTOL PO SCH ×2 (11:19→15:29)
[2019-07-05] MEDS: PYRAZINAMIDE PO SCH ×2 (11:19→15:33)
[2019-07-05] MEDS: RIFAMPIN PO SCH (11:32)
[2019-07-05] MEDS: PYRIDOXINE PO SCH ×2 (11:33→15:42)
--- NOTE | 2019-07-05 17:50 | PROVIDER PROGRESS NOTE ---
Progress Note Dr. Obrien Progress Note/Pulmonary and or critical care Subjective: The patient is sitting on the bedside chair with no acute distress noted. He is on room air. He states he is leaving soon; his friend is coming to pick him up and he has the discharge paperwork in his pocket. He is wearing sunglasses and he states he is "Marco Chicas". Objective: Vital Signs: T 98.6 (No fever in last 24 hours), UT 89, RR 16, BP 170/93 and SaO2 98% on room air. Physical Examination: General: Lying in bed. No acute distress noted. HEENT: Normocephalic. Atraumatic. Trachea midline. Mucosa pink and moist. PERRL. Oropharynx clear. Chest: Even and unlabored. Symmetrical excursion. Auscultation decreased air entry bilaterally. CVS: S1 and S2 appreciated. Abdomen: Soft. Nondistended. Nontender. Bowel sounds present in all 4 quadrants. Extremities: No pedal edema. No cyanosis. Neuro: Awake and alert. Easy to get upset. Answer questions at times. Follow commands at times. Labs and Radiology: No labs/radiology today. Assessment: Suspected tuberculosis with positive QuantiFERON and positive AFB smear. CT on 06/26/19 revealed upper lobe cavitary disease, extensive with right greater than left. S/P bronchoscopy with bronchoalveolar lavage of the RUL and the CHINEDU with a tracheal washing on 07/01/19. Bipolar disorder. Medical noncompliance. Patient continues to refuse treatment during his hospital stay. Plan: Continue 4 drug regimen for suspected tuberculosis including Ethambutol, Isoniazid, Parazinamide, and Rifampin. Await confirmation from the State. Await additional recommendations from the State if the patient is positive for tuberculosis.
--- NOTE | 2019-07-05 17:58 | PROGRESS NOTE ---
DATE: 07/05/2019 SUBJECTIVE: Patient has no major complaints. He is much more well tempered today. He is not upset. The nurses have been able to get him to take his antitubercular medications and even some of his psychiatric medicines which he has not taken in several days, with the encouragement of his daughter, fortunately. OBJECTIVE: Vital Signs: Blood pressure 140/80, heart rate 102, respiratory rate of 18. Temperature was 98.6 degrees. He actually had several temperatures 13th through the 15th. Cardiovascular: Regular rate and rhythm. Pulmonary: Bilateral breath sounds clear to auscultation. Gastrointestinal: Abdomen soft, nontender, nondistended. Bowel sounds are positive. LABORATORY DATA: I have not gotten any further data. At this point, I do not want to upset him since he is cooperating with his antitubercular medications. ASSESSMENT/PLAN: 1. Bronchiectasis, cavitary lesions secondary to mycobacterium tuberculosis versus IRENE. We are still waiting on the state to give us an official result. He is on RIPE, rifampin, isoniazid, pyrazinamide and ethambutol. Effectively, since he is a independent living patient, he is going to have to be treated for 2 weeks before going anywhere. I anticipate he is probably going to have to be here for those 2 weeks because I do not think we are going to get him to another facility, especially with the Coronavirus disease crisis going on, unless there is a an alternative treatment. Obviously, if the AFB culture is IRENE and not tuberculosis, he can go back sooner and his treatment will have to be modulated. 2. Hypothyroidism. Continue Synthroid and follow. 3. Bipolar disorder. When he is closer to discharge, we may need to get psychiatric evaluation although I think if he just takes his medications and his behaviors continue improve, he will be fine, but the assisted living may require that prior to discharge. cc: Frankie Panda MD
[2019-07-06] MEDS: SYNTHROID PO SCH (06:21)
[2019-07-06] MEDS: RIFAMPIN PO SCH (09:40)
[2019-07-06] MEDS: ABILIFY PO SCH (09:41)
[2019-07-06] MEDS: DEPAKOTE PO SCH ×2 (09:41→22:50)
[2019-07-06] MEDS: PYRIDOXINE PO SCH (09:41)
[2019-07-06] MEDS: INH PO SCH (09:41)
[2019-07-06] MEDS: FOLIC ACID PO SCH (09:42)
[2019-07-06] MEDS: MYAMBUTOL PO SCH (09:44)
[2019-07-06] MEDS: PYRAZINAMIDE PO SCH (09:45)
--- NOTE | 2019-07-06 18:03 | PROVIDER PROGRESS NOTE ---
Progress Note Dr. Obrien Progress Note/Pulmonary and or critical care Subjective: The patient is sitting on the bedside chair with no acute distress noted. Once I stepped into the room, he puts his sunglasses on and tells me he is "Marco Chicas". He has music on loudly with body movement frequently. Objective: Vital Signs: T 98.6 (No fever in last 24 hours), IA 75, RR 16, BP 97/58 and SaO2 100% on room air. Physical Examination: General: sitting on the bedside chair. No acute distress noted. HEENT: Normocephalic. Atraumatic. Trachea midline. Mucosa pink and moist. PERRL. Oropharynx clear. Chest: Even and unlabored. Symmetrical excursion. Auscultation decreased air entry bilaterally, otherwise, clear. CVS: S1 and S2 appreciated. Abdomen: Soft. Nondistended. Nontender. Bowel sounds present in all 4 quadrants. Extremities: No pedal edema. No cyanosis. Neuro: Awake and alert. Easy to get upset. Answer questions at times. Follow commands at times. Labs and Radiology: No labs/radiology today. Assessment: Suspected tuberculosis with positive QuantiFERON and positive AFB smear. CT on 06/26/19 revealed upper lobe cavitary disease, extensive with right greater than left. S/P bronchoscopy with bronchoalveolar lavage of the RUL and the CHINEDU with a tracheal washing on 07/01/19. Bipolar disorder. Medical noncompliance. Patient continues to refuse treatment during his hospital stay. Plan: Continue 4 drug regimen for suspected tuberculosis including Ethambutol, Isoniazid, Parazinamide, and Rifampin. Await confirmation from the State. Await additional recommendations from the State if the patient is positive for tuberculosis.
--- NOTE | 2019-07-06 20:17 | PROGRESS NOTE ---
DATE: 07/06/2019 INTERVAL HISTORY: Mr. Aranda did not have any acute overnight events. SUBJECTIVE: He denies new complaints. He is sitting in the chair with his sunglasses on. OBJECTIVE: He is afebrile, with temperature of 97.9 degrees, pulse 65, respiratory rate 16, blood pressure 125/62, saturating 97% on room air. On physical examination he is not in any acute distress. Oral cavity is moist. Air entry bilaterally equal. No wheeze or rhonchi. He had crackles in bilateral lung salazar and decreased air entry. S1, S2 normal. No murmur or gallop. Abdomen is soft, nontender. He has mild bilateral lower extremity edema. He is alert. He is oriented to himself. He does have delusional behavior. LABORATORY DATA: No CBC or BMP today. ASSESSMENT AND PLAN: 1. 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 We are awaiting official results from the state. Meanwhile, I will continue him on isoniazid, rifampin, pyrazinamide and ethambutol. He is also on pyridoxine to prevent pyridoxine deficiency. 2. History of hypothyroidism. Continue Synthroid. 3. History of bipolar mood disorder. I will continue him on aripiprazole and as-needed ziprasidone. 4. Others: Start enoxaparin for deep venous thrombosis prophylaxis. I will follow up with CBC and CMP to make sure he is not experiencing any liver toxicity from antituberculosis medication. Plan of care discussed with Mr. Aranda. His questions have been answered. cc: Shawn Good MD
[2019-07-06] MEDS: LOVENOX SUBQ SCH (20:30)
[2019-07-06] MEDS: LIPITOR PO SCH (22:50)
[2019-07-07] MEDS: SYNTHROID PO SCH (06:12)
[2019-07-07 07:05] LABS: BASO# 0.04 X1000 (0.0-0.2); BASO% 0.4 % (0.0-0.8); EOS# 0.18 X1000 (0.0-0.7); EOS% 1.9 % (0.0-10.0); HEMATOCRIT 33.7 % (42.0-52.0); HEMOGLOBIN 10.1 g/dL (14.0-18.0); IMM GRAN# 0.03 X1000 (0.0-0.04); IMM GRAN% 0.3 % (0.0-0.5); LYMPH# 3.88 X1000 (1.2-3.4); LYMPH% 40.8 % (20.5-51.1); MCH 29.2 PG (27-31); MCV 97.4 FL (81-99); MONO# 1.08 X1000 (0.11-0.59); MONO% 11.3 % (1.7-9.3); MPV 9.7 FL (7.4-10.4); NEUT# 4.31 X1000 (1.4-6.5); NEUT% 45.3 % (42.2-75.2); PLT 223 X1000 (130-400); RBC 3.46 XMIL (4.7-6.1); RDW 15.4 % (11.5-14.5); WBC 9.52 X1000 (4.8-10.8)
[2019-07-07 07:28] LABS: ALB/GLOB RATIO 1.3; ALBUMIN 3.8 g/dL (3.5-5.0); CALCIUM 9.3 mg/dL (8.8-10.2); CREATININE 1.5 mg/dL (0.7-1.2); TOTAL BILIRUBIN 0.54 mg/dL (0.20-1.00); TOTAL PROTEIN 6.7 g/dL (6.3-8.3)
[2019-07-07 07:30] LABS: EOS 2 % (1-10); LYMPHS 36 % (21-51); SEGS 54 % (42-75)
[2019-07-07] MEDS: ABILIFY PO SCH (12:39)
[2019-07-07] MEDS: DEPAKOTE PO SCH ×2 (12:39→20:26)
[2019-07-07] MEDS: INH PO SCH (12:40)
[2019-07-07] MEDS: FOLIC ACID PO SCH (12:40)
[2019-07-07] MEDS: MYAMBUTOL PO SCH (12:41)
[2019-07-07] MEDS: PYRIDOXINE PO SCH (12:42)
[2019-07-07] MEDS: PYRAZINAMIDE PO SCH (12:42)
[2019-07-07] MEDS: RIFAMPIN PO SCH (12:43)
--- NOTE | 2019-07-07 15:35 | PROGRESS NOTE ---
DATE: 07/07/2019 INTERVAL HISTORY: No acute events overnight. SUBJECTIVE: Mr. Aranda is dressed up and sitting in the chair. He denies any chest pain, shortness of breath, nausea, vomiting, abdominal pain, or problems with urination. He states he does not like the food being served here. REVIEW OF SYSTEMS: Negative for headache. Negative for blurring of vision. Negative for burning micturition. VITALS: Temperature 98.2 degrees, pulse 95, respiratory rate 20, blood pressure 127/69, saturating 98% on room air. PHYSICAL EXAMINATION: He is not in acute distress. Oral cavity is moist. Lungs: Air entry bilaterally equal. No wheeze or rhonchi. He has crackles in both suprascapular regions and infrascapular region. Cardiovascular: S1, S2 normal. No murmur, rub, or gallop. Abdomen: Soft, nontender. Extremities: Only mild lower extremity edema which is bilateral and appears chronic. He is alert. He is oriented to himself. He does have a delusional behavior and he states that he is perfectly fine. When I asked him about his kidney dysfunction, he states he did not believe he had kidney dysfunction. He could not provide the reasoning for that. LABS: WBC 9.5, hemoglobin 10.1, platelets 223,000. His BUN 42, creatinine 1.5. MICROBIOLOGY: No new data. ASSESSMENT AND PLAN: 1. 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 His QuantiFERON gold test was positive. Final results from [facility] is pending to determine if it is mycobacterial tuberculosis versus Mycobacterium avium-intracellulare. Continue isoniazid, rifampin, pyrazinamide, and ethambutol. Continue pyridoxine to prevent pyridoxine deficiency from isoniazid. 2. Acute kidney injury with hyperkalemia. The patient states he has adequate oral intake, though he only eats 50% of his meals on chart. I discussed with him about getting an intravenous line and he is adamant about not getting it. I will get urinalysis, urine electrolytes, eosinophil urine smear to assess his DOMINIC. Differential includes prerenal acute kidney injury due to poor oral intake, Rifampin could also cause interstitial nephritis. Follow up with repeat BMP tomorrow. 3. Others. Continue Synthroid for hypothyroidism, aripiprazole and as needed ziprasidone for history of bipolar mood disorder, enoxaparin for deep venous thrombosis prophylaxis. 4. Disposition. I will continue to monitor the patient inside the hospital as we await final results of his mycobacterial testing. I discussed with him about the need for intravenous access and intravenous fluid. However, he states that he would not need it since he was feeling fine. I discussed with him about the need for intravenous access for emergent purposes if a cardiac arrest happens and he states that he would not and he did not want any intravenous access. I will continue to monitor him inside the hospital. cc: Shawn Good MD MTDD
--- NOTE | 2019-07-07 16:48 | PROVIDER PROGRESS NOTE ---
Progress Note Dr. Obrien Progress Note/Pulmonary and or critical care Subjective: The patient is sitting on the bedside chair with no acute distress noted. He is playing his phone. He denies any cough, SOB, hemoptysis, pleurisy or chest pain. He states "I am fine. I am not sick." He did cough some right after I step out of the room. Objective: Vital Signs: T 98.2 (No fever in last 24 hours), KS 83, RR 20, BP 116/66 and SaO2 98% on room air. Physical Examination: General: sitting on the bedside chair. No acute distress noted. HEENT: Normocephalic. Atraumatic. Trachea midline. Mucosa pink and moist. PERRL. Oropharynx clear. Chest: Even and unlabored. Symmetrical excursion. Auscultation reveals inspiratory crackles bilaterally posteriorly and diminished breathing sounds bilaterally. CVS: S1 and S2 appreciated. Abdomen: Soft. Nondistended. Nontender. Bowel sounds present in all 4 quadrants. Extremities: No pedal edema. No cyanosis. Neuro: Awake and alert. Answer questions appropriately. Follow simple commands. Labs and Radiology: Laboratory Results 07/07/19 07/07/19 06:18 06:18 WBC 9.52 RBC 3.46 L Hgb 10.1 L Hct 33.7 L MCV 97.4 MCH 29.2 MCHC 30.0 L RDW Std Deviation 15.4 H Plt Count 223 MPV 9.7 Immature Gran % (Auto) 0.3 Neut % (Auto) 45.3 Lymph % (Auto) 40.8 Highlands % (Auto) 11.3 H Eos % (Auto) 1.9 Baso % (Auto) 0.4 Immature Gran # (Auto) 0.03 Neut # (Auto) 4.31 Lymph # (Auto) 3.88 H Highlands # (Auto) 1.08 H Eos # (Auto) 0.18 Baso # (Auto) 0.04 Segmented Neutrophils 54 Lymphocytes 36 Eosinophils 2 Unidentified Cells 8.0 Sodium 137 Potassium 5.0 Chloride 99 Carbon Dioxide 19 L Anion Gap 19 BUN 42 H Creatinine 1.5 H Estimated GFR/1.73 m2 55 BUN/Creatinine Ratio 28 Glucose 109 H Calculated Osmolality 285 Calcium 9.3 Total Bilirubin 0.54 AST 23 ALT 11 Alkaline Phosphatase 53 Creatine Kinase 61 Total Protein 6.7 Albumin 3.8 Globulin 2.9 Albumin/Globulin Ratio 1.3 Assessment: Suspected tuberculosis with positive QuantiFERON and positive AFB smear. CT on 06/26/19 revealed upper lobe cavitary disease, extensive with right greater than left. S/P bronchoscopy with bronchoalveolar lavage of the RUL and the CHINEDU with a tracheal washing on 07/01/19. Bipolar disorder. Acute kidney injury. Medical noncompliance. Patient continues to refuse treatment during his hospital stay. Plan: Continue 4 drug regimen for suspected tuberculosis including Ethambutol, Isoniazid, Parazinamide, and Rifampin. [facility], but uncollected. Await confirmation from the State. Await additional recommendations from the State if the patient is positive for tuberculosis.
[2019-07-07] MEDS: LOVENOX SUBQ SCH (17:50)
[2019-07-07 18:19] LABS: URINE SOURCE CLEAN CATCH
[2019-07-07 18:32] LABS: BILIRUBIN URINE NEGATIVE (NEGATIVE); BLOOD URINE TRACE (NEGATIVE); COLOR YELLOW; GLUCOSE URINE NEGATIVE (NEGATIVE); KETONE URINE NEGATIVE (NEGATIVE); LEUKOCYTES URINE NEGATIVE (NEGATIVE); NITRITE URINE NEGATIVE (NEGATIVE); PROTEIN URINE NEGATIVE (NEGATIVE); SP GRAVITY URINE 1.017; TURBIDITY URINE CLEAR (CLEAR); UROBILINOGEN URINE NORMAL (NORMAL)
[2019-07-07 18:33] LABS: UR EPITHELIAL CELLS <10 /HPF (<10); URINE BACTERIA NEGATIVE /HPF; URINE RBC <10 /HPF (<10); URINE WBC <10 /HPF (<10)
[2019-07-07 18:39] LABS: PROTEIN CREAT RATIO 0.1; UR CREAT RANDOM 71.7 mg/dL (14-26); UR PROT RANDOM 10.2 mg/dL
[2019-07-07] MEDS: LIPITOR PO SCH (20:26)
[2019-07-08] MEDS: SYNTHROID PO SCH (06:02)
[2019-07-08] MEDS: RIFAMPIN PO SCH (10:45)
[2019-07-08] MEDS: DEPAKOTE PO SCH ×2 (10:47→20:43)
[2019-07-08] MEDS: PYRIDOXINE PO SCH (10:47)
[2019-07-08] MEDS: INH PO SCH (10:47)
[2019-07-08] MEDS: ABILIFY PO SCH (10:47)
[2019-07-08] MEDS: FOLIC ACID PO SCH (10:47)
[2019-07-08] MEDS: MYAMBUTOL PO SCH (10:49)
[2019-07-08] MEDS: PYRAZINAMIDE PO SCH (10:50)
--- NOTE | 2019-07-08 17:06 | PROGRESS NOTE ---
DATE: 07/08/2019 SUBJECTIVE: Patient has no major complaints. OBJECTIVE: Vital Signs: Blood pressure is 115/56, heart rate of 83, respiratory rate 16, temperature 98 degrees, 98% on room air. Cardiovascular: Regular rate and rhythm. Pulmonary: Bilateral breath sounds clear to auscultation. GI: Soft, nontender, nondistended. Bowel sounds are positive. LABORATORY DATA: White count 9, hemoglobin and hematocrit 10 and 33, platelets 223,000. Creatinine is up to 1.5, that was yesterday's, I do not have today's numbers. Now when he came in, his creatinine was 1.5. I think he may have some baseline renal insufficiency. PROBLEM LIST: 1. Bronchiectasis, cavitary right upper lobe lesions with concern over some sort of mycobacterium infection, tuberculosis versus mycobacterium avium-intracellulare, previous mycobacterium avium complex. He is on rifampin, isoniazid, pyrazinamide, and ethambutol therapy. He is going to have to get treatment here. 2. Acute kidney injury. We will continue to monitor. He refused labs today, I think is what happened, but we will attempt to get them again tomorrow. 3. Disposition. He has not had an IV since he has been here, but we will need to get some labs and see where we are with treatment. Hopefully we will get some ultimate information tomorrow. 4. Bipolar disorder. He is now taking his medications. He seems more reasonable. Before, he was very adamant about refusing treatments, but now he seems to be doing okay. DISPOSITION: Pending clinical status. cc: Frankie Panda MD
[2019-07-08] MEDS: LOVENOX SUBQ SCH (18:09)
--- NOTE | 2019-07-08 20:20 | PULMONOLOGY PROGRESS NOTE ---
DATE: 07/08/2019 SUBJECTIVE: Patient is in his room. He has a fair cough effort. He denies making sputum. He is refusing labs, but does appear to be taking his medications. OBJECTIVE: General: The patient is awake and alert. He is without specific complaints. Vital signs: The patient has been afebrile for the last several days. Blood pressure 138/66, heart rate 82, respiratory rate 20, oxygen saturation 98%. HEENT: Pupils are equal and reactive. Oropharynx appears clear. Neck: Supple. Chest: Good air entry bilaterally with occasional rhonchi. Cardiac: S1, S2. Abdomen: Soft. Extremities: Without edema. LABORATORIES: There is no new microbiology data. IMPRESSION: A 78-year-old with: 1. Cavitary lung disease. 2. Positive QuantiFERON Gold TB test. 3. Multiple washings and lavages from the lungs revealing acid-fast bacillus. By report, the PCR from the State was negative. PLAN: 1. Continue current antibiotic regimen. 2. Plan on checking with the lab tomorrow to see if we can expect any progress in further identification of the acid-fast bacillus identified. cc: Kali Rayo MD
[2019-07-08] MEDS: LIPITOR PO SCH (20:43)
[2019-07-09] MEDS: SYNTHROID PO SCH ×2 (05:43→06:07)
[2019-07-09] MEDS: RIFAMPIN PO SCH (10:15)
[2019-07-09] MEDS: MYAMBUTOL PO SCH (10:15)
[2019-07-09] MEDS: DEPAKOTE PO SCH ×2 (10:16→22:27)
[2019-07-09] MEDS: FOLIC ACID PO SCH (10:16)
[2019-07-09] MEDS: ABILIFY PO SCH (10:16)
[2019-07-09] MEDS: PYRIDOXINE PO SCH (10:16)
[2019-07-09] MEDS: PYRAZINAMIDE PO SCH (10:16)
[2019-07-09] MEDS: INH PO SCH (10:16)
--- NOTE | 2019-07-09 16:58 | PROGRESS NOTE ---
DATE: 07/09/2019 SUBJECTIVE: Patient has no major complaints. OBJECTIVE: Vital signs: Blood pressure is 128/73, heart rate of 89, respiratory rate of 20, temperature 98.6 degrees, 100% on room air. Cardiovascular: Regular rate and rhythm. Pulmonary: Bilateral breath sounds. Clear to auscultation. GI: Soft, nontender, nondistended. Bowel sounds are positive. LABORATORY DATA: I have no new data today. We have not had data for 2 days. Right now, Dr. Rayo has discovered this is mycobacterium avium intracellulare and not tuberculin, so we can take him off precautions. We are going to wait on culture data prior to starting antimycobacterial treatment. He is not particularly symptomatic from it. Reportedly, he has also had latent TB and that has been treated by health department records. PROBLEM LIST: 1. Mycobacterium avium bronchiectasis. Dr. Rayo has just recommended nebulizer treatments for the time being. We will stop RIPE treatment as this is not tuberculosis. 2. Acute kidney injury. Again, patient refuses labs. There is concern from a psych standpoint that his BUN has jumped up, which is a concern, but he is eating and drinking, he seems okay, and he is refusing any labs. He is refusing to be stuck for an IV. I do think he probably does need fluids. I do not think that would hurt him, but it would not necessarily keep him as an inpatient at this point. 3. Bipolar disorder. This was the main reason he was sent to the hospital, for combative behaviors. It was incidentally found that he has an abnormal x-ray which prompted this workup and he has been in the hospital waiting for that workup since the . He has been here for 13 days, almost 2 weeks trying to figure this out. I am going to try to get psych evaluation still to see if he needs inpatient psychiatric treatment. He had been accepted previously. If not, we will send him back to his senior living. I would say if we could encourage him to get an IV and get some fluids that would be helpful. So we will see how things go from that perspective. So, in any case, patient is complicated situation. I do need some assistance from psychiatry because he is refusing his Depo, Abilify and I think it is affecting his ability. But we will see what their recommendations are and go from there. We need to get that evaluated before he goes to a senior living. cc: Frankie Panda MD
[2019-07-09] MEDS: LOVENOX SUBQ SCH (17:05)
[2019-07-09] MEDS: DUONEB (A & A) INH SCH (19:00)
--- NOTE | 2019-07-09 19:56 | PULMONOLOGY PROGRESS NOTE ---
DATE: 07/09/2019 SUBJECTIVE: The patient is awake and alert, and listening to Marco Chicas in concert. He is without new complaints. OBJECTIVE: Vital Signs: The patient has been afebrile for the last 24 hours. Blood pressure 141/71, heart rate 84, respiratory rate 18, oxygen saturation 99%. HEENT: Pupils are equal and reactive. Oropharynx is clear. Neck: Soft. Lungs: Reveals occasional rhonchi bilaterally. Cardiac exam: S1, S2. Abdomen: Soft. Extremities: Without edema. LABORATORIES: I received a call from the [facility] today. They indicated his cultures are all growing mycobacterium avium complex. They also indicated that prior records from [facility] indicated he had a latent TB infection in the past and did undergo therapy. IMPRESSION: 1. Latent tuberculosis infection, status post treatment. 2. Positive QuantiFERON gold test associated with prior exposure and treatment. 3. Mycobacterium avium complex disease. RECOMMENDATIONS: 1. Discontinue isolation. 2. Discontinue anti-tubercular medications. 3. Continue bronchial hygiene. 4. Consider outpatient treatment of Mycobacterium avium complex disease if he has evidence of progression. Would delay treatment at this time pending results of culture data. cc: Kali Rayo MD
[2019-07-09 20:18] LABS: BASO# 0.01 X1000 (0.0-0.2); BASO% 0.1 % (0.0-0.8); EOS# 0.06 X1000 (0.0-0.7); EOS% 0.8 % (0.0-10.0); HEMATOCRIT 32.4 % (42.0-52.0); HEMOGLOBIN 9.9 g/dL (14.0-18.0); LYMPH# 3.09 X1000 (1.2-3.4); LYMPH% 40.1 % (20.5-51.1); MCH 29.8 PG (27-31); MCHC 30.6 g/dL (33-37); MCV 97.6 FL (81-99); MONO# 0.93 X1000 (0.11-0.59); MONO% 12.1 % (1.7-9.3); MPV 9.5 FL (7.4-10.4); NEUT# 3.62 X1000 (1.4-6.5); NEUT% 46.9 % (42.2-75.2); PLT 249 X1000 (130-400); RBC 3.32 XMIL (4.7-6.1); RDW 15.2 % (11.5-14.5); WBC 7.71 X1000 (4.8-10.8)
[2019-07-09 20:26] LABS: AGAP 13; ALB/GLOB RATIO 0.8; ALBUMIN 3.4 g/dL (3.5-5.0); ALKALINE PHOSPHATASE 53 U/L (32-122); BUN 42 mg/dL (8-22); CALCIUM 9.3 mg/dL (8.8-10.2); CHLORIDE 99 mmol/L (98-107); COSMO 281; CREATININE 1.3 mg/dL (0.7-1.2); ESTIMATED GFR > 60; GLUCOSE 115 mg/dL (70-104); GOT 39 U/L (10-34); GPT 11 U/L (10-44); POTASSIUM 4.8 mmol/L (3.5-5.1); SODIUM 135 mmol/L (136-145); TCO2 23 mmol/L (25-35); TOTAL BILIRUBIN 0.59 mg/dL (0.20-1.00); TOTAL PROTEIN 7.6 g/dL (6.3-8.3)
[2019-07-09] MEDS: LIPITOR PO SCH (22:27)
[2019-07-10] MEDS: SYNTHROID PO SCH (06:14)
[2019-07-10] MEDS: DUONEB (A & A) INH SCH (07:45)
[2019-07-10] MEDS: DEPAKOTE PO SCH (09:21)
[2019-07-10] MEDS: ABILIFY PO SCH (09:22)
[2019-07-10] MEDS: FOLIC ACID PO SCH (09:22)
[2019-07-10 11:12] VITALS: BP 142/89
--- NOTE | 2019-07-10 16:36 | Diag Imaging Result Doc PS360 ---
EXAM: CHEST-PORTABLE HISTORY: [facility] admit TECHNIQUE: Single view COMPARISON: 06/26/2019 FINDINGS: Scarring and bronchiectasis in the right upper lobe. There is also bronchiectasis in the upper left lung. No cardiomegaly. No pulmonary edema. No pleural effusions identified. IMPRESSION: Stable chest Electronically signed by Vu Jones 07/10/2019 4:33 PM
--- NOTE | 2019-07-10 16:50 | EKG Report ---
Test Performed on : 07/10/2019 4:33:01 PM Test Reason : [facility] admit Blood Pressure : / mmHG Vent. Rate : 087 BPM Atrial Rate : 087 BPM P-R Int : 148 ms QRS Dur : 076 ms QT Int : 394 ms P-R-T Axes : 066 010 070 degrees QTc Int : 474 ms Normal sinus rhythm. Cannot rule out Anterior infarct , age undetermined Abnormal ECG When compared with ECG of 10-JUL-2019 16:31, (Unconfirmed) QRS axis shifted right Confirmed by Daniel GOOD, Martín Hartman ([id number]) on 07/11/2019 2:52:13 PM
--- NOTE | 2019-07-10 17:40 | Diag Imaging Result Doc PS360 ---
EXAM: CT HEAD W/O CONTRAST HISTORY: [facility] admit TECHNIQUE: CT head without contrast COMPARISON: 06/26/2019 FINDINGS: No parenchymal hemorrhage. No epidural or subdural hematoma. No subarachnoid hemorrhage. Moderate atrophy. Small area of encephalomalacia in the left parietal lobe similar to the prior exam. No mass identified on this noncontrasted exam. No hydrocephalus. No sinus opacification. 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 Electronically signed by Vu Jones 07/10/2019 5:38 PM
--- NOTE | 2019-07-11 05:13 | DISCHARGE SUMMARY ---
ADMISSION DATE: 06/26/2019 DISCHARGE DATE: 07/10/2019 DISCHARGE DIAGNOSES: 1. 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 2. Bipolar disorder, most likely uncontrolled. 3. Chronic renal failure. HISTORY: Briefly, this is a 78-year-old male. He was sent from independent living because of combative behaviors. Unfortunately, chest x-ray was abnormal. Subsequent chest CT also showed bronchiectasis in the upper lobes where there was concern for atypical infection such as IRENE, or even tuberculosis. We could not obtain a regular AFB through sputum induction. He ended up requiring bronchoscopy which was done per Dr. Rayo on the which showed all the bronchial washings were acid fast positive. His quantiferon was also positive. The rapid PCR test though revealed that this was indeed mycobacterium avium intracellular, and not active tuberculosis. Apparently, also, there were records from the [facility] that he had latent TB and had completed treatment. In any case, the patient intermittently throughout the stay including on admission refused his psychiatric treatments intermittently. He has refused his Carol Weber as an outpatient 2 months in a row, and states he does not have bipolar disorder. He does not want psychiatric medication. He qualified for inpatient psych when he was initially sent to the ER, but because of the tuberculosis rule out, we had to pursue that first. He was re-evaluated by [facility]. They had recommendations to repeat his electrolytes. His creatinine is 1.3. He does have a mild elevation in BUN, but that may be related to some of the medications he had been taken because we did initially try RAPE treatment. In short, he had a repeat head CT which showed some atrophy but nothing else. He tentatively agreed to go to [facility] although I do not think there was much choice because assisted living would not take him back until he agreed to his treatment. Two new medications 1) albuterol MDI. This will need to be done twice a day and continued at [facility], and continued as an outpatient. I have given him a prescription. He also was hypothyroid and folate deficient so I would recommend treatment for both. His TCA was 62, and his free T4 was 0.87. Again, I do not think that would necessarily cause his confusion. In any case, we supplemented both his folic acid and his treatment. In any case, he will be going to [facility] to complete his psychiatric care and then go from there. We do need a bold face that he will need follow up with Dr. Rayo in a couple of months. Hopefully, once his psychiatric medicines have stabilized and then follow up on the IRENE cultures, and then consideration for treatment at that point. DISCHARGE MEDICATIONS: 1. Lipitor 10. 2. He is on Abilify Maintena which is 300 monthly. 3. Depakote 500 b.i.d. 4. Folic Acid 1 daily which is new. 5. Synthroid 25 daily which is new. 6. Ventolin 2 puffs b.i.d. which is new. DISCHARGE LABORATORY: He will need follow-up labs in 4 to 6 weeks as far as his thyroid function. DISCHARGE CONDITION: Stable. DISCHARGE TIME: 35 minutes. cc: Frankie Panda MD MTDD
== END 2019-07-10 19:06 | DRG 191 ==
LOC: P.ED 12:53 → P.MEDSURG 12:53 → OBSVTOIN 12:54 → SUATTDRO 12:54 → 3N 06-29 16:58 → 4N 06-29 17:34
PROVIDERS: ATTEND Internal Medicine